=== PATIENT | male | born 1975 | race Caucasian/White ===

== ENCOUNTER 2024-08-09 14:51 | Outpatient (CLI) | payer BC, SELFPAY ==
--- NOTE | ~2024-08-09 | XR_ITS ---
EXAMINATION: XR elbow RT 2V, XR elbow LT 2V DATE: 08/09/2024 15:11 INDICATION: Bilateral elbow pain TECHNIQUE: 1. Anteroposterior and lateral views of the right elbow were obtained. 2. Anteroposterior and lateral views of the left elbow were obtained. COMPARISON: None. FINDINGS: Alignment is normal at the bilateral elbows. No fracture or joint effusion. Minimal osteoarthritis at the bilateral elbows. There small enthesophytes at the left medial epicondyle and the right medial a nd lateral epicondyles. Couple small enthesopathic ossicles at the left lateral epicondyle. Soft tiss ues are otherwise unremarkable. IMPRESSION: 1. 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 Reviewed, dictated and finalized at location A. IMPRESSION: 1. 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
--- NOTE | ~2024-08-09 | XR_ITS ---
EXAM: XR hand LT min 3V, XR hand RT min 3V DATE: 08/09/2024 15:11 HISTORY: M79.643 - Pain in unspecified hand . COMPARISON: None available. FINDINGS: Normal mineralization. No fracture or dislocation. No lytic or blastic lesion. Mild scatte red degenerative change. Multiple round calcific/ossific bodies adjacent to the right second metatars al head measuring between 3 and 6 mm. No erosion or periosteal change. Soft tissues within normal jenkins its. IMPRESSION: Calcific/ossified bodies at the right second metatarsal head, may represent loose bodies within the j oint space as can be seen with primary or secondary chondromatosis. MR of the right hand may be helpf ul for further evaluation. Mild polyarticular osteoarthritis of the hands. Reviewed, dictated and finalized at [facility]. IMPRESSION: Calcific/ossified bodies at the right second metatarsal head, may represent loo se bodies within the joint space as can be seen with primary or secondary chond romatosis. MR of the right hand may be helpful for further evaluation. Mild polyarticular osteoarthritis of the hands.
--- OUTSIDE RECORDS SUMMARY | 2024-08-09 15:00 | XMS_ITS | Referral Summary ---
Author Organization [facility] Address [address] [facility] [address] [place] [id number] Phone Care Team Providers Care Coil Former Name Role Phone Rupali Gupta SNOW REMOVING SUPERVISOR Primary Care Provider [phone] Allergies No known active allergies Medications hydrOXYzine (ATARAX) 25 mg tablet take 1 tablet by oral route up to 4 times every day as needed for acute anxiety/panic 90 3 6 Active citalopram (CeleXA) 20 mg tablet take 1 tablet by oral route 2 times every day 180 3 6 Active Additional Information Patient not taking.Reported on 08/28/2022 mirtazapine (REMERON) 30 mg tablet Take 1 tablet (30 mg total) by mouth nightly Active cloNIDine (CATAPRES-TTS) 0.1 mg/[address] 0.1 mg on the skin once a week Active DULoxetine DR (CYMBALTA) 60 mg capsule Take 1 capsule (60 mg total) by mouth daily Active amitriptyline (ELAVIL) 50 mg tablet Take 1 tablet (50 mg total) by mouth nightly Active omeprazole (PriLOSEC) 20 mg capsule Take 1 capsule (20 mg total) by mouth daily Active cyclobenzaprine (FLEXERIL) 10 mg tablet Take 1 tablet (10 mg total) by mouth 3 (three) times a day as needed for muscle spasms Active omega 6-vxn-djs-fish oil 1,000 mg (120 mg-180 mg) capsule Active glucosamine HCl 1,500 mg tablet Take by mouth Active multivitamin with iron-mineral tablet Take by mouth Active Active Problems Problem Noted Date Diagnosed Date Numbness and tingling of right hand 08/28/2022 Restless leg syndrome 08/28/2022 Patient encounter status 08/28/2015 Overview (07/11/2016): Encounter for general adult medical examination without abnormal findings Immunizations Immunization Administration Dates Next Due Influenza, Quadrivalent, Split, Intramuscular TD Preservative Free 04/06/1988 Social History Tobacco Use Types Packs/Day Years Used Date Smoking Tobacco: Former Cigarettes Q uit: 04/06/2014 Tobacco Cessation:Counseling Given: Not Answered Alcohol Use Standard Drinks/Week Comments Yes 0 (1 standard drink = 0.6 oz pur e alcohol) Personal Safety Answer Date Recorded Getting School Help Needed Not on file 06/18 Sex and Gender Information Value Date Recorded Sex Assigned at Not on file 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 Gender Identity Not on file Sexual Orientation Not on file Last Filed Vital Signs Vital Sign Reading Time Taken Comments Blood Pressure 119/85 08/28/2022 8:23 AM CDT Pulse 80 08/28/2022 8:23 AM CDT Temperature - - Respiratory Rate 16 08/28/2022 8:23 AM CDT Oxygen Saturation 100% 08/28/2022 8:23 AM CDT Inhaled Oxygen Concentration - - Weight 69.6 kg (153 lb 6.4 oz) 08/28/2022 8:23 A M CDT Height 165.1 cm (5' 5 ) 08/28/2022 8:23 AM CDT Body Mass Index 25.53 08/28/2022 8:23 AM CDT Plan of Treatment Not on file Insurance [facility] [employer] [place] Care Teams Coil Former Relationship Specialty Start Date End Date Rupali Gupta NP PCP - General Nephrology 05/26/22
--- OUTSIDE RECORDS SUMMARY | 2024-08-09 15:00 | XMS_ITS | Clinical Summary ---
Author Organization [facility] Address [address] [facility] [address] [place] [id number] Phone Care Team Providers Care Director Medical Economics Name Role Phone Rupali Gupta RETURNS SUPERVISOR Primary Care Provider [phone] Allergies No known active allergies Medications hydrOXYzine [...] as needed for muscle spasms Active omega 9-rnk-dxd-fish oil 1,000 mg (120 mg-180 mg) capsule [...] Quadrivalent, Split, Intramuscular TD Preservative Free 04/06/1988 Surgical History Surgery Date Site/Laterality Comments APPENDECTOMY Appendectomy OTHER SURGICAL HISTORY hydrocelectomy Medical History Medical History Date Comments Hx Other Medical joint pain Hx Other Medical sciatica Hx Other Medical 1992 wisdom teeth Hx Other Medical 1987 retinal reattac hment Family History Medical History Relation Name Comments Other Father 2 Alive and well; Diabetes Mother Diabetes mellit us; Other Mother does not speak to mother; Relation Name Status Comments Father 1 Alive Father 2 Mother Social History Tobacco Use Types Packs/Day Years [...] on file 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 Gender Identity Not on file Sexual Orientation Not on file Obstetrics History Last Filed Vital Signs Vital Sign Reading [...] 08/28/2022 8:23 AM CDT Plan of Treatment Health Maintenance Due Date Last Done Comments Colon Cancer Screening-Colonoscopy 1974 Depression Screening 1974 Hepatitis C Screening 1974 Prostate Cancer Screening-PSA 1974 DTaP/Tdap/Td Vaccine (1 - Tdap) 04/07/1988 04/06/1988 Hepatitis B Screening 1992 Regular Well Visit/Exam 18-64 1992 Influenza Vaccine (#1) 2023 2, 01/29/2021, 03/10/2020, Additional history exists Zoster Vaccine (1 of 2) 2024 Pneumococcal vaccine <65 Aged Out No longer eligible based on patient's age to complete this topic Insurance [facility] [employer] Care Teams Director Medical Economics Relationship Specialty Start Date End Date Rupali Gupta NP PCP - General Nephrology 05/26/22
== END 2024-08-09 14:52 | disposition home or self-care (01) ==
PROVIDERS: PCP Nurse Practitioner Family; Visit Provider Plastic Surgery
DX: M79.642 Pain in left hand (principal); M79.641 Pain in right hand; M19.022 Primary osteoarthritis, left elbow; M19.021 Primary osteoarthritis, right elbow; G56.03 Carpal tunnel syndrome, bilateral upper limbs
CPT/HCPCS: 73070; 73130

== ENCOUNTER 2024-10-05 08:18 | Outpatient (CLI) | payer BC, MEDICAID, SELFPAY ==
--- OUTSIDE RECORDS SUMMARY | 2024-10-05 08:22 | XMS_ITS | Clinical Summary ---
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 Gender Identity Not on file Sexual Orientation [...] A M CDT Height 165.1 cm (5' 5) 08/28/2022 8:23 AM CDT Body Mass Index 25.53 08/28/2022 8:23 AM CDT Plan of Treatment Health Maintenance Due Date Last Done Comments Colon Cancer Screening-Colonoscopy 1974 Depression Screening 1974 Hepatitis C Screening 1974 Prostate Cancer Screening-PSA 1974 DTaP/Tdap/Td Vaccine (1 - Tdap) 04/07/1988 04/06/1988 Hepatitis B Screening 1992 Regular Well Visit/Exam 18-64 1992 Zoster Vaccine (1 of 2) 2024 Influenza Vaccine (Season Ended) 2024 01/20/2022, 01/29/2021, 03/10/2020, Additional history exists Pneumococcal vaccine <65 Aged Out No longer eligible based on patient's age to complete this topic Insurance [facility] [employer] [place] Care Teams Drum Straightener Relationship Specialty Start Date End Date Rupali Gupta NP PCP - General Nephrology 05/26/22
--- OUTSIDE RECORDS SUMMARY | 2024-10-05 08:22 | XMS_ITS | Referral Summary ---
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
--- OUTSIDE RECORDS SUMMARY | 2024-10-05 08:22 | XMS_ITS | Patient Health Record ---
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 adverse reactions. Patient voiced understanding. 11/04/2023 Medication monitoring encounter (ICD-10 - Z51.81) 01/05/2024 Cannabis abuse (ICD-10 - F12.10) Discussed with patient that taking herbs such as marijuanaand vitamins/supplements, may interfere with or alter the way prescription medications work in the body or cause adverse reactions. Patient voiced understanding. 03/23/2024 Cannabis abuse (ICD-10 - F12.10) Discussed with patient that taking herbs such as marijuanaand vitamins/supplements, may interfere with or alter the way prescription medications work in the body or cause adverse reactions. Patient voiced understanding. 06/14/2024 Intermittent explosive disorder (ICD-10 - F63.81) Discussed dx, increasing Cymbalta as SSRI/SNRI has been show in research to be helpful. 07/27/2024 Screening for metabolic disorder (ICD-10 - Z13.228) z 07/28/2024 Concentration deficit (ICD-10 - R41.840) Discussed r/b/se of treatment. 09/05/2024 Concentration deficit (ICD-10 - R41.840) Discussed r/b/se of treatment. 09/28/2024 Concentration deficit (ICD-10 - R41.840) Discussed r/b/se of treatment. 08/16/2024 Screening for deficiency anemia (ICD-10 - Z13.0) 08/16/2024 Screening for diabetes mellitus (ICD-10 - Z13.1) 09/28/2024 Intermittent explosive disorder (ICD-10 - F63.81) Continue Cymbalta as SSRI/SNRI has been show in research to be helpful. 09/05/2024 Intermittent explosive disorder (ICD-10 - F63.81) Continue Cymbalta as SSRI/SNRI has been show in research to be helpful. 07/28/2024 Intermittent explosive disorder (ICD-10 - F63.81) Continue Cymbalta as SSRI/SNRI has been show in research to be helpful. 07/27/2024 Screening for deficiency anemia (ICD-10 - Z13.0) z 03/23/2024 Medication monitoring encounter (ICD-10 - Z51.81) 01/05/2024 Medication monitoring encounter (ICD-10 - Z51.81) 11/04/2023 Concentration deficit (ICD-10 - R41.840) Discussed r/b/se of treatment. 01/05/2024 Concentration deficit (ICD-10 - R41.840) Discussed r/b/se of treatment. 03/23/2024 Concentration deficit (ICD-10 - R41.840) Discussed r/b/se of treatment. 07/27/2024 Screening for diabetes mellitus (ICD-10 - Z13.1) z 08/16/2024 Overactive bladder (ICD-10 - N32.81) 07/27/2024 Overactive bladder (ICD-10 - N32.81) z 11/04/2023 Other Discussed signs of activation of hypomania and serotonin syndrome. Client is using 3 serotonergic drugs. 01/05/2024 Other Reasons, potential benefits, potential risks, interactions and side effects of all medications were discussed. The Patient/Guardian asked appropriate questions, appeared to understand the answers, and decided to accept the treatment and continue being followed. Alternatives and expected course without treatment were reviewed. The Patient/Guardian is aware of the need to contact the office or return for an earlier appointment if any problems or concerns arise. May also contact the 24-hour crisis hotline (R), refer to the closest emergency room or call 911 if new symptoms arise of existing symptoms worsen. The Patient/Guardian is aware that this would apply to symptoms like: suicidal ideation, homicidal ideation, high risk behaviors, manic symptoms, psychotic symptoms, physical symptoms, or any other symptoms that may be dangerous to self or others. Greater than 50% of time spent on coordination and counseling where psychopharmacology as well as psychotherapeutic interventions were discussed along with review of treatments in the past. Education provided concerning need for adequate hydration. Patient/Guardian verbalized understanding of education, treatment plan and follow up. This session was completed telephonically with client/parental/guard torey consent: Unable to determine movement status, assess appearance, affect, AIMS, or vital signs. 03/23/2024 Other Reasons, potential benefits, potential risks, interactions and side effects of all medications were discussed. The Patient/Guardian asked appropriate questions, appeared to understand the answers, and decided to accept the treatment and continue being followed. Alternatives and expected course without treatment were reviewed. The Patient/Guardian is aware of the need to contact the office or return for an earlier appointment if any problems or concerns arise. May also contact the 24-hour crisis hotline ([facility]), refer to the closest emergency room or call 911 if new symptoms arise of existing symptoms worsen. The Patient/Guardian is aware that this would apply to symptoms like: suicidal ideation, homicidal ideation, high risk behaviors, manic symptoms, psychotic symptoms, physical symptoms, or any other symptoms that may be dangerous to self or others. Greater than 50% of time spent on coordination and counseling where psychopharmacology as well as psychotherapeutic interventions were discussed along with review of treatments in the past. Education provided concerning need for adequate hydration. Patient/Guardian verbalized understanding of education, treatment plan and follow up. This session was completed telephonically with client/parental/guard torey consent: Unable to determine movement status, assess appearance, affect, AIMS, or vital signs. 06/14/2024 Other Reasons, potential benefits, potential risks, interactions and side effects of all medications were discussed. The Patient/Guardian asked appropriate questions, appeared to understand the answers, and decided to accept the treatment and continue being followed. Alternatives and expected course without treatment were reviewed. The Patient/Guardian is aware of the need to contact the office or return for an earlier appointment if any problems or concerns arise. May also contact the 24-hour crisis hotline ([facility]), refer to the closest emergency room or call 911 if new symptoms arise of existing symptoms worsen. The Patient/Guardian is aware that this would apply to symptoms like: suicidal ideation, homicidal ideation, high risk behaviors, manic symptoms, psychotic symptoms, physical symptoms, or any other symptoms that may be dangerous to self or others. Greater than 50% of time spent on coordination and counseling where psychopharmacology as well as psychotherapeutic interventions were discussed along with review of treatments in the past. Education provided concerning need for adequate hydration. Patient/Guardian verbalized understanding of education, treatment plan and follow up. 07/28/2024 Other Reasons, potential benefits, potential risks, interactions and side effects of all medications were discussed. The Patient/Guardian asked appropriate questions, appeared to understand the answers, and decided to accept the treatment and continue being followed. Alternatives and expected course without treatment were reviewed. The Patient/Guardian is aware of the need to contact the office or return for an earlier appointment if any problems or concerns arise. May also contact the 24-hour crisis hotline ([facility]), refer to the closest emergency room or call 911 if new symptoms arise of existing symptoms worsen. The Patient/Guardian is aware that this would apply to symptoms like: suicidal ideation, homicidal ideation, high risk behaviors, manic symptoms, psychotic symptoms, physical symptoms, or any other symptoms that may be dangerous to self or others. Greater than 50% of time spent on coordination and counseling where psychopharmacology as well as psychotherapeutic interventions were discussed along with review of treatments in the past. Education provided concerning need for adequate hydration. Patient/Guardian verbalized understanding of education, treatment plan and follow up. This session was completed telephonically with client/parental/guard torey consent: Unable to determine movement status, assess appearance, affect, AIMS, or vital signs. 09/05/2024 Other Reasons, potential benefits, potential risks, interactions and side effects of all medications were discussed. The Patient/Guardian asked appropriate questions, appeared to understand the answers, and decided to accept the treatment and continue being followed. Alternatives and expected course without treatment were reviewed. The Patient/Guardian is aware of the need to contact the office or return for an earlier appointment if any problems or concerns arise. May also contact the 24-hour crisis hotline ([facility]), refer to the closest emergency room or call 911 if new symptoms arise of existing symptoms worsen. The Patient/Guardian is aware that this would apply to symptoms like: suicidal ideation, homicidal ideation, high risk behaviors, manic symptoms, psychotic symptoms, physical symptoms, or any other symptoms that may be dangerous to self or others. Greater than 50% of time spent on coordination and counseling where psychopharmacology as well as psychotherapeutic interventions were discussed along with review of treatments in the past. Education provided concerning need for adequate hydration. Patient/Guardian verbalized understanding of education, treatment plan and follow up. 09/28/2024 Other Reasons, potential benefits, potential risks, interactions and side effects of all medications were discussed. The Patient/Guardian asked appropriate questions, appeared to understand the answers, and decided to accept the treatment and continue being followed. Alternatives and expected course without treatment were reviewed. The Patient/Guardian is aware of the need to contact the office or return for an earlier appointment if any problems or concerns arise. May also contact the 24-hour crisis hotline ([facility]), refer to the closest emergency room or call 911 if new symptoms arise of existing symptoms worsen. The Patient/Guardian is aware that this would apply to symptoms like: suicidal ideation, homicidal ideation, high risk behaviors, manic symptoms, psychotic symptoms, physical symptoms, or any other symptoms that may be dangerous to self or others. Greater than 50% of time spent on coordination and counseling where psychopharmacology as well as psychotherapeutic interventions were discussed along with review of treatments in the past. Education provided concerning need for adequate hydration. Patient/Guardian verbalized understanding of education, treatment plan and follow up. This session was completed telephonically with client/parental/guard torey consent: Unable to determine movement status, assess appearance, affect, AIMS, or vital signs. Plan Of Treatment Pending Test Test Name Order Date EMG Nerve Conduction Study, Left Hand/Ri ght Hand 07/27/2024 Insurance Providers Payer Name Payer Address Payer Phone Subscriber Number Group Number Insured Name Patient Relationship to Insured Coverage Start Date Coverage End Date [facility] [place]NOTE 2[place] [address] [place] [address] [phone] [id number] Valente La Self - patient is the insured 3 [employer] [address] [place] [address] [id number] Aaliyah Valente de anda Self - patient is the insured 3 3 MEDICA[employer] [facility] [address] [place] [address] [id number] Valente La Self - patient is the insured 3 3 [employer] [address] [place] [address] [id number] Valente aL Self - patient is the insured 3 3 [employer] [address] [place] [phone] [id number] Valente La Self - patient is the insured 3 3 Medical (General) History Medical History History ICD Code Overactive bladder early-stages of glaucoma Reduced hearing RLS Carpal tunnel Surgical History Surgery Date(Month/Year) tore UCL and carpal tunnel 2019 Hospitalization History Reason Date(Month/Year) psychiatric hold 03/2022
--- NOTE | 2024-10-05 11:00 | NEURO_ITS ---
Impression: # Complains of numbness and difficulty using Right hand ? # Right Ulnar Neuropathy across the elbow ? # No Carpal Tunnel Syndrome ? # Normal Needle/EMG exam Nerve Conduction Studies ?Stim Site NR Peak (ms) P-T Amp (?V) Site1 Site2 Delta-P (ms) Dist (cm) Shady (m/s) Left Median Anti Sensory (2-3nd Digit) Wrist ? 2.8 27.3 Wrist 2-3nd Digit 2.8 14.0 50 Wrist ? 2.9 30.0 Wrist 2-3nd Digit 2.8 14.0 50 Right Median Anti Sensory (2-3nd Digit) Wrist ? 3.4 18.8 Wrist 2-3nd Digit 3.4 14.0 41 Wrist ? 3.4 22.7 Wrist 2-3nd Digit 3.4 14.0 41 Left Radial Anti Sensory (Base 1st Digit) Wrist ? 1.7 30.5 Wrist Base 1st Digit 1.7 0.0 Right Radial Anti Sensory (Base 1st Digit) Wrist ? 2.0 23.7 Wrist Base 1st Digit 2.0 0.0 Left Ulnar Anti Sensory (5th Digit) Wrist ? 2.3 26.7 Wrist 5th Digit 2.3 14.0 61 Right Ulnar Anti Sensory (5th Digit) Wrist ? 2.3 23.7 Wrist 5th Digit 2.3 14.0 61 ?Stim Site NR Onset (ms) O-P Amp (mV) Site1 Site2 Delta-0 (ms) Dist (cm) Shady (m/s) Left Median Motor (Abd Poll Brev) Wrist ? 2.8 4.7 Elbow Wrist 4.9 28.0 57 Elbow ? 7.7 4.3 Right Median Motor (Abd Poll Brev) Wrist ? 3.3 6.6 Elbow Wrist 5.1 27.0 53 Elbow ? 8.4 5.7 Left Ulnar Motor (Abd Dig Minimi) Wrist ? 2.6 6.5 A Elbow Wrist 4.9 29.0 59 A Elbow ? 7.5 6.6 B Elbow Wrist 3.3 22.0 67 B Elbow ? 5.9 4.1 Right Ulnar Motor (Abd Dig Minimi) Wrist ? 2.3 6.8 A Elbow Wrist 6.0 29.0 48 A Elbow ? 8.3 5.8 B Elbow Wrist 3.7 19.0 51 B Elbow ? 6.0 5.5 Electromyography ?Side Muscle Nerve Root Ins Act Fibs Amp Dur Recrt Comment Right 1stDorInt Ulnar C8-T1 Nml Nml Nml Nml Nml Right Ext Indicis Radial (Post Int) C7-8 Nml Nml Nml Nml Nml Right Ext Digitorum Radial (Post Int) C7-8 Nml Nml Nml Nml Nml Right BrachioRad Radial C5-6 Nml Nml Nml Nml Nml Right PronatorTeres Median C6-7 Nml Nml Nml Nml Nml Right Abd Poll Brev Median C8-T1 Nml Nml Nml Nml Nml Right ABD Dig Min Ulnar C8-T1 Nml Nml Nml Nml Nml Right FlexPolLong Median (Ant Int) C7-8 Nml Nml Nml Nml Nml Right Abd Poll Long Radial (Post Int) C7-8 Nml Nml Nml Nml Nml Left 1stDorInt Ulnar C8-T1 Nml Nml Nml Nml Nml Left Ext Indicis Radial (Post Int) C7-8 Nml Nml Nml Nml Nml Left Ext Digitorum Radial (Post Int) C7-8 Nml Nml Nml Nml Nml Left BrachioRad Radial C5-6 Nml Nml Nml Nml Nml Left PronatorTeres Median C6-7 Nml Nml Nml Nml Nml Left Abd Poll Brev Median C8-T1 Nml Nml Nml Nml Nml Left ABD Dig Min Ulnar C8-T1 Nml Nml Nml Nml Nml Left FlexPolLong Median (Ant Int) C7-8 Nml Nml Nml Nml Nml Left Abd Poll Long Radial (Post Int) C7-8 Nml Nml Nml Nml Nml
== END 2024-10-05 08:19 | disposition home or self-care (01) ==
LOC: ANHNEURO 08:20
PROVIDERS: PCP Nurse Practitioner Family; Visit Provider Plastic Surgery
DX: G56.03 Carpal tunnel syndrome, bilateral upper limbs (principal)
CPT/HCPCS: 95886; 95911